=== PATIENT | female | born 1990 | race Asian ===

== ENCOUNTER 2019-11-16 11:06 | Outpatient (CLI) | payer OTHER, SELFPAY ==
--- NOTE | ~2019-11-16 | US_ITS ---
US breast LT complete INDICATION: Left breast lump TECHNIQUE: Targeted left breast ultrasound. COMPARISON: No prior studies for comparison. FINDINGS: The left breast is composed of normal heterogeneous echotexture without focal solid or cyst ic mass. IMPRESSION: 1: Normal left breast ultrasound. BI-RADS CATEGORY 1 - NEGATIVE Reviewed, dictated and finalized at location A.
== END 2019-11-16 11:07 | disposition home or self-care (01) ==
PROVIDERS: Visit Provider Student in an Organized Health Care Education/Training Program
DX: N63.20 Unspecified lump in the left breast, unspecified quadrant (principal)
CPT/HCPCS: 76641

== ENCOUNTER → 2020-07-09 06:50 | Outpatient (CLI) | payer OTHER, SELFPAY ==
[2020-07-09 16:23] LABS: SARS-CoV-2 RNA PCR Negative
== END ==
PROVIDERS: PCP Family Medicine; Visit Provider Family Medicine
DX: Z20.822 Contact with and (suspected) exposure to COVID-19 (principal); R09.89 Other specified symptoms and signs involving the circulatory and respiratory systems
CPT/HCPCS: C9803; U0003; U0005